=== PATIENT | female | born 1985 | race Hispanic/Latino ===

== ENCOUNTER 2018-08-18 02:59 | Emergency (ER) | payer BC ==
[2018-08-18] MEDS ORDERED: Lidocaine 1% w/Epinephrine 1:100K 20 ML VIAL ONE (03:23)
[2018-08-18] MEDS ORDERED: Adacel (T-DAP) 0.5 ML SYRINGE ONE (03:51)
== END 2018-08-18 04:39 | disposition home or self-care (01) ==
LOC: ERS 02:59
DX: S01.111A Laceration without foreign body of right eyelid and periocular area, initial encounter (principal); W18.09XA Striking against other object with subsequent fall, initial encounter
CPT/HCPCS: 12001; 90471; 90715; J2001